=== PATIENT | male | born 1960 ===

== ENCOUNTER 2024-08-04 11:25 | Day surgery (SDC) | payer OTHER ==
[~2024-08-04] VITALS: Ht 188 cm; Wt 108.5 kg
[~2024-08-04 11:25] MED LIST: Bupivacaine 0.5% W/EPI 1:200000 SDV 30 ML Vial ONE; Erythromycin 0.5% Opth Oint 1 gm ONE; Lactated Ringer's 1,000 ML IV ONE; Lidocaine 2%-Epineph 1:100000 20 ML MDV ONE; NS 0 ML IV ONE
[2024-08-04] MEDS ORDERED: LOSA50 PO (12:35)
[2024-08-04] MEDS ORDERED: ATOR40TA PO (12:37)
[2024-08-04] MEDS ORDERED: HYDCHL50 PO (12:38)
[2024-08-04] MEDS ORDERED: NAPR500ERA PO (12:38)
[2024-08-04] MEDS ORDERED: CHLO4 PO (12:38)
[2024-08-04] MEDS ORDERED: OMEPRAZOLE20 MG PO (12:39)
[2024-08-04] MEDS ORDERED: NIFE60ER PO (12:39)
[2024-08-04] MEDS ORDERED: PINDOLOL (12:39)
[2024-08-04] MEDS ORDERED: POTA10T PO (12:40)
[2024-08-04] MEDS ORDERED: TRAZ100 PO (12:40)
[2024-08-04] MEDS ORDERED: Lactated Ringer's 1,000 ML IV ONE (12:55)
[2024-08-04] MEDS ORDERED: Tetracaine HCl/Pf 0.5% Opth Soln 4 ml ONE (13:31)
[2024-08-04] MEDS ORDERED: FentaNYL Citrate 50 MCG/ML 2 ML Injection ONE (13:41)
[2024-08-04] MEDS ORDERED: Midazolam HCl 1MG / ML 2ML Vial ONE ×2 (13:41→14:50)
[2024-08-04] MEDS ORDERED: propofoL 20 ML IV ONE (13:42)
[2024-08-04] MEDS ORDERED: Dexamethasone Sod Phos 10 MG/ML 1ML VIAL ONE (13:52)
[2024-08-04] MEDS ORDERED: Ondansetron HCl 2 MG / ML 2ML Vial ONE (13:52)
[2024-08-04] MEDS ORDERED: Glycopyrrolate 0.2 MG/ML 5ML VIAL ONE (14:08)
[2024-08-04 14:16] LABS: Albumin, Blood 4.1 g/dL (3.4-5.0); Albumin/Globulin Ratio 1.2 (0.8-1.8); Bilirubin, Total 0.5 mg/dL (0.1-1.0); Bun/Creatinine Ratio 25.4 (12.0-20.0); Calcium, Blood 9.5 mg/dL (8.5-10.1); Creatinine, Blood 0.75 mg/dL (0.60-1.20); Globulin, Blood 3.4 g/dL (2.2-4.0); Potassium, Blood 3.4 mmol/L (3.5-5.5); Total Protein, Blood 7.5 g/dL (6.4-8.2)
--- NOTE | 2024-08-04 16:12 | NUR ---
08/04/24 1612 Jovanni Santos PT INIIALLY APPEARED TENSE AND ANXIOUS IN SDU. HIS APPEARANCE BECAME MORE CALM UPON TRANSFER TO RECLINER.
--- NOTE | 2024-08-04 16:42 | NUR ---
08/04/24 1642 Jovanni Santos AFTER LMA REMOVAL, PT BEGAN THRASHING, ATTEMPTING TO RUB FOREHEAD INCISIONS, AND ATTEMPTING TO EXIT BED. PT NOT TALKATIVE AND NOT COMPLIANT WITH INSTRUCTIONS AT THAT TIME. UNABLE TO OBTAIN THREE LEAD ECG. VERSED ADMINISTERED BY [email or web address], PER VO FROM DR. TADEO (SEE EMAR) .
== END 2024-08-04 15:48 | disposition home or self-care (01) ==
LOC: ORSCSDS 11:25
PROVIDERS: Ophthalmology
PROC: 0W020ZZ Alteration of Face, Open Approach (ICD-10-PCS; principal; 2024-08-04 13:30)
DX: H57.813 Brow ptosis, bilateral (principal); I10 Essential (primary) hypertension; F17.210 Nicotine dependence, cigarettes, uncomplicated; K21.9 Gastro-esophageal reflux disease without esophagitis; F43.10 Post-traumatic stress disorder, unspecified; Z79.899 Other long term (current) drug therapy; E78.00 Pure hypercholesterolemia, unspecified
CPT/HCPCS: 80053; 93005; 93010; A9270; J1100; J2250; J2405; J2704; J3010; J7040; J7120